=== PATIENT | male | born 1940 | race Caucasian/White ===

== ENCOUNTER 2017-06-22 23:55 | Inpatient (IN) ==
[2017-06-23] MEDS ORDERED: 0.9 % Sodium Chloride 1,000 ML IVC ONE (00:02)
[2017-06-23] MEDS ORDERED: Ipratropium/Albuterol Neb 3 ML IH ONE ×2 (00:03→05:40)
--- NOTE | 2017-06-23 00:13 | Emergency Department Note ---
Disposition Clinical Impression: Hypoxia Altered mental status Qualifiers: Altered mental status type: unspecified Qualified Code(s): R41.82 - Altered mental status, unspecified Cellulitis Qualifiers: Site of cellulitis: unspecified site Qualified Code(s): L03.90 - Cellulitis, unspecified Disposition: Admitted As Inpatient Condition: Fair Referrals: NONE,PCP [Primary Care Provider] - Forms: ED Satisfaction Letter Time of Disposition: 02:05 Altered Mental Status HPI - General Chief Complaint: ED Altered Mental Status Stated Complaint: AMS Time Seen by Provider: 06/23/17 00:01 Source: patient, EMS Mode of arrival: ambulatory Limitations: no limitations Nursing Notes Reviewed: Yes Vital Signs Reviewed: Yes - History of Present Illness HPI Narrative: 77-year-old male patient is for evaluation of altered mental status. History provided via EMS. EMS states that the patient's neighbor notices been increasing altered over the past 2-3 days. Patient was found to be hypoxic on room air saturation of 85%. Patient was given 4 mg of Narcan with some notable response. EMS noted the patient did have benzos at home. Patient is a known smoker. The patient is alert with a GCS of 14 and appears to be confused. Not cooperative initially on exam controlling his airway. Limitations: ROS unobtainable due to patients medical condition Past Medical History - Past Medical History Source: patient, other Medical history: Reports: non-contributory Psychiatric history: Reports: no psych history - Social History Smoking Status: Current every day smoker Smokeless Tobacco Status: No Alcohol use: Reports: none Drug use: Reports: none Physical Exam - General Limitations: no limitations General appearance: lethargic - Head Head exam: atraumatic, normocephalic, normal inspection - Eye Eye exam: Present: normal appearance, PERRL, EOMI - ENT ENT exam: normal exam, normal oropharynx, mucous membranes moist - Neck Neck exam: Present: normal inspection, full ROM, trachea midline - Chest Chest inspection: Present: normal inspection, symmetric chest wall rise - Respiratory Respiratory exam: Present: wheezes (Diffuse expiratory wheeze), accessory muscle use, prolonged expiratory phase. Absent: respiratory distress - Cardiovascular Cardiovascular exam: Present: tachycardia. Absent: systolic murmur - Abdominal Exam Abdominal exam: Present: soft, Non-Tender - Extremities Exam Extremities exam: Present: normal inspection, pedal edema (Trace bilateral) - Expanded Lower Extremity Exam Neurovascular/Tendon exam: Present: normal capillary refill - Neurological Exam Neurological exam: Present: alert, CN II-XII intact - Skin Skin exam: Present: warm, dry, intact, normal color Course Course Narrative: Patient is not a stroke alert given no clear time of onset. Patient does appear to be acutely altered. [place] etiologies includes hypoxia from likely COPD lung disease. Patient will get basic labs, chest x-ray as well as CT of the head and chest. Patient also get urinalysis. Patient does not require airway intervention this time. Disposition likely admission. Vital Signs Temperature 98.2 F 06/22/17 23:58 Pulse Rate 119 06/22/17 23:58 Respiratory Rate 24 06/22/17 23:58 Blood Pressure 106/70 06/22/17 23:58 O2 Sat by Pulse Oximetry 97 06/22/17 23:58 Temperature 98.2 F 06/22/17 23:58 Pulse Rate 87 06/23/17 02:43 Respiratory Rate 16 06/23/17 02:43 Blood Pressure 114/61 06/23/17 02:43 O2 Sat by Pulse Oximetry 94 06/23/17 02:43 Oxygen Delivery Oxygen Delivery Simple Mask Altered Mental Status - MDM Narrative Medical decision making narrative: Patient presents for acute altered mental status. EMS report the patient was recently diagnosed with sinusitis. Patient had several medications nearby upon arrival. One was Augmentin and prednisone. Patient also had benzoate. Patient was found to be hypoxic of 85%. Patient does appear to be controlling his airway. Patient does have evidence of cellulitis of lower extremity. Does have a white count possibly combination related to prednisone as well as recent infection. Patient was started on Rocephin in the ER. Patient CT of the head and chest shows no acute abnormalities. Patient will be admitted to hospital service for further evaluation and monitoring. Patient's mental status possibly related to hypoxemic episode earlier today versus polysubstance. Patient ABG did show hypoxemia patients prior coccygeal or titrated to pulse ox. - Lab Data Lab results reviewed: Yes I reviewed the patient's lab results. Result diagrams: 06/23/17 00:27 06/23/17 00:27 Lab Results 06/23/17 06/23/17 06/23/17 Range/Units 00:07 00:07 00:27 WBC 16.2 H (4.3-11.1) K/mcL RBC 4.04 L (4.19-5.50) M/mcL Hgb 11.8 L (12.9-16.9) g/dL Hct 37.0 L (37.5-50.1) % MCV 91.6 (83.0-100.0) fL MCH 29.2 (28.0-33.3) pg MCHC 31.9 (31.6-35.5) g/dL RDW 15.3 H (11.5-14.5) % Plt Count 189 (140-400) K/mcL MPV 9.5 (9.4-12.4) fL Immature Gran % 0.6 (0-4) % Seg Neutrophils % 88.5 % Lymphocytes % 4.3 % Monocytes % 5.9 % Eosinophils % 0.6 % Basophils % 0.1 % Neutrophils # 14.3 H (1.6-8.9) K/mcL Lymphocytes # 0.7 (0.6-4.6) K/mcL Monocytes # 1.0 (0.0-1.3) K/mcL Eosinophils # 0.1 (0.0-0.6) K/mcL Basophils # 0.0 (0.0-0.2) K/mcL PT (9.4-12.1) Seconds INR Sample Site ABG pH (7.32-7.45) pH Units ABG pCO2 (35-45) mmHg ABG pO2 (85-104) mmHg ABG HCO3 (21-27) mEq/L ABG Total CO2 (20-26) mEq/L ABG O2 Saturation (95-98) % ABG Base Excess (-2 to 3) mEq/L Bayron Test O2 Delivery Device Inspired O2 (1-15=lpm yb11-465=%) Sodium (136-145) mEq/L Potassium (3.5-5.1) mEq/L Chloride (98-107) mEq/L Carbon Dioxide (23-29) mEq/L BUN (8-23) mg/dL Creatinine (0.70-1.30) mg/dL Est GFR ( Amer) (> 60) Est GFR (Non-Af Amer) (> 60) BUN/Creatinine Ratio (6-26) Glucose (70-105) mg/dL Calculated Osmolality (280-300) Calcium (8.6-10.3) mg/dL Magnesium (1.6-2.6) mg/dL Total Bilirubin (0.3-1.0) mg/dL Direct Bilirubin (0.0-0.2) mg/dL Indirect Bilirubin (0.0-1.2) mg/dL AST (13-39) Units/L ALT (7-52) Units/L Alkaline Phosphatase (34-104) Units/L Creatine Kinase (30-223) Units/L Troponin I (< 0.04) ng/mL Serum Total Protein (6.4-8.9) g/dL Albumin (3.5-5.7) g/dL Globulin (2.4-3.5) g/dL Albumin/Globulin Ratio (1.1-2.2) Urine Color Yellow (Yellow) Urine Clarity Clear (Clear) Urine pH 6.0 (5.0-8.0) pH Units Ur Specific [place] 1.025 (1.010-1.025) Urine Protein 30 H (Neg-Trace) mg/dL Urine Glucose (UA) Normal (Normal) mg/dL Urine Ketones Negative (Negative) mg/dL Urine Blood Negative (Negative) Urine Nitrite Negative (Negative) Urine Bilirubin Negative (Negative) Urine Urobilinogen Normal (Normal) mg/dL Ur Leukocyte Esterase Negative (Negative) Urine Microscopic RBC 0-3 (0-3) per hpf Urine Microscopic WBC 0-3 (0-3) per hpf Ur Squamous Epith Cells Many H (None-Few) per lpf Urine Bacteria None Seen (None-Few) per hpf Hyaline Casts None Seen (None-Few) per lpf Ur Culture Indicated? NO (NO) Urine Opiates Screen Negative (Ixwtiu=439) ng/mL Ur Barbiturates Screen Negative (Anerqm=414) ng/mL Ur Phencyclidine Scrn Negative (Cutoff=25) ng/mL Ur Amphetamines Screen Negative (Htnojw=7496) ng/mL U Benzodiazepines Scrn Negative (Dypnkm=804) ng/mL Urine Cocaine Screen Negative (Cutoff= 300) ng/mL U Marijuana (THC) Screen Negative (Cutoff = 50) ng/mL Ethyl Alcohol (0-10) mg/dL 06/23/17 06/23/17 06/23/17 Range/Units 00:27 00:27 00:27 WBC (4.3-11.1) K/mcL RBC (4.19-5.50) M/mcL Hgb (12.9-16.9) g/dL Hct (37.5-50.1) % MCV (83.0-100.0) fL MCH (28.0-33.3) pg MCHC (31.6-35.5) g/dL RDW (11.5-14.5) % Plt Count (140-400) K/mcL MPV (9.4-12.4) fL Immature Gran % (0-4) % Seg Neutrophils % % Lymphocytes % % Monocytes % % Eosinophils % % Basophils % % Neutrophils # (1.6-8.9) K/mcL Lymphocytes # (0.6-4.6) K/mcL Monocytes # (0.0-1.3) K/mcL Eosinophils # (0.0-0.6) K/mcL Basophils # (0.0-0.2) K/mcL PT 12.4 H (9.4-12.1) Seconds INR 1.1 Sample Site ABG pH (7.32-7.45) pH Units ABG pCO2 (35-45) mmHg ABG pO2 (85-104) mmHg ABG HCO3 (21-27) mEq/L ABG Total CO2 (20-26) mEq/L ABG O2 Saturation (95-98) % ABG Base Excess (-2 to 3) mEq/L Bayron Test O2 Delivery Device Inspired O2 (1-15=lpm ld05-024=%) Sodium 133 L (136-145) mEq/L Potassium 4.1 (3.5-5.1) mEq/L Chloride 99 (98-107) mEq/L Carbon Dioxide 31 H (23-29) mEq/L BUN 16 (8-23) mg/dL Creatinine 0.84 (0.70-1.30) mg/dL Est GFR ( Amer) > 60 (> 60) Est GFR (Non-Af Amer) > 60 (> 60) BUN/Creatinine Ratio 19 (6-26) Glucose 229 H (70-105) mg/dL Calculated Osmolality 284 (280-300) Calcium 8.8 (8.6-10.3) mg/dL Magnesium (1.6-2.6) mg/dL Total Bilirubin 0.5 (0.3-1.0) mg/dL Direct Bilirubin 0.1 (0.0-0.2) mg/dL Indirect Bilirubin 0.4 (0.0-1.2) mg/dL AST 10 L (13-39) Units/L ALT 15 (7-52) Units/L Alkaline Phosphatase 63 (34-104) Units/L Creatine Kinase (30-223) Units/L Troponin I < 0.03 (< 0.04) ng/mL Serum Total Protein 5.5 L (6.4-8.9) g/dL Albumin 3.1 L (3.5-5.7) g/dL Globulin 2.4 (2.4-3.5) g/dL Albumin/Globulin Ratio 1.3 (1.1-2.2) Urine Color (Yellow) Urine Clarity (Clear) Urine pH (5.0-8.0) pH Units Ur Specific [place] (1.010-1.025) Urine Protein (Neg-Trace) mg/dL Urine Glucose (UA) (Normal) mg/dL Urine Ketones (Negative) mg/dL Urine Blood (Negative) Urine Nitrite (Negative) Urine Bilirubin (Negative) Urine Urobilinogen (Normal) mg/dL Ur Leukocyte Esterase (Negative) Urine Microscopic RBC (0-3) per hpf Urine Microscopic WBC (0-3) per hpf Ur Squamous Epith Cells (None-Few) per lpf Urine Bacteria (None-Few) per hpf Hyaline Casts (None-Few) per lpf Ur Culture Indicated? (NO) Urine Opiates Screen (Kudehy=841) ng/mL Ur Barbiturates Screen (Kxogxk=618) ng/mL Ur Phencyclidine Scrn (Cutoff=25) ng/mL Ur Amphetamines Screen ([place]=7515) ng/mL U Benzodiazepines Scrn (Bccovi=476) ng/mL Urine Cocaine Screen (Cutoff= 300) ng/mL U Marijuana (THC) Screen (Cutoff = 50) ng/mL Ethyl Alcohol < 10 (0-10) mg/dL 06/23/17 06/23/17 06/23/17 Range/Units 00:27 00:27 00:49 WBC (4.3-11.1) K/mcL RBC (4.19-5.50) M/mcL Hgb (12.9-16.9) g/dL Hct (37.5-50.1) % MCV (83.0-100.0) fL MCH (28.0-33.3) pg MCHC (31.6-35.5) g/dL RDW (11.5-14.5) % Plt Count (140-400) K/mcL MPV (9.4-12.4) fL Immature Gran % (0-4) % Seg Neutrophils % % Lymphocytes % % Monocytes % % Eosinophils % % Basophils % % Neutrophils # (1.6-8.9) K/mcL Lymphocytes # (0.6-4.6) K/mcL Monocytes # (0.0-1.3) K/mcL Eosinophils # (0.0-0.6) K/mcL Basophils # (0.0-0.2) K/mcL PT (9.4-12.1) Seconds INR Sample Site L Radial ABG pH 7.38 (7.32-7.45) pH Units ABG pCO2 56 H (35-45) mmHg ABG pO2 331 H (85-104) mmHg ABG HCO3 33 H (21-27) mEq/L ABG Total CO2 35 H (20-26) mEq/L ABG O2 Saturation 100 H (95-98) % ABG Base Excess 7 H (-2 to 3) mEq/L Bayron Test N/A O2 Delivery Device NRB Inspired O2 100.0 (1-15=lpm dq53-197=%) Sodium (136-145) mEq/L Potassium (3.5-5.1) mEq/L Chloride (98-107) mEq/L Carbon Dioxide (23-29) mEq/L BUN (8-23) mg/dL Creatinine (0.70-1.30) mg/dL Est GFR ( Amer) (> 60) Est GFR (Non-Af Amer) (> 60) BUN/Creatinine Ratio (6-26) Glucose (70-105) mg/dL Calculated Osmolality (280-300) Calcium (8.6-10.3) mg/dL Magnesium 2.1 (1.6-2.6) mg/dL Total Bilirubin (0.3-1.0) mg/dL Direct Bilirubin (0.0-0.2) mg/dL Indirect Bilirubin (0.0-1.2) mg/dL AST (13-39) Units/L ALT (7-52) Units/L Alkaline Phosphatase (34-104) Units/L Creatine Kinase 55 (30-223) Units/L Troponin I (< 0.04) ng/mL Serum Total Protein (6.4-8.9) g/dL Albumin (3.5-5.7) g/dL Globulin (2.4-3.5) g/dL Albumin/Globulin Ratio (1.1-2.2) Urine Color (Yellow) Urine Clarity (Clear) Urine pH (5.0-8.0) pH Units Ur Specific [place] (1.010-1.025) Urine Protein (Neg-Trace) mg/dL Urine Glucose (UA) (Normal) mg/dL Urine Ketones (Negative) mg/dL Urine Blood (Negative) Urine Nitrite (Negative) Urine Bilirubin (Negative) Urine Urobilinogen (Normal) mg/dL Ur Leukocyte Esterase (Negative) Urine Microscopic RBC (0-3) per hpf Urine Microscopic WBC (0-3) per hpf Ur Squamous Epith Cells (None-Few) per lpf Urine Bacteria (None-Few) per hpf Hyaline Casts (None-Few) per lpf Ur Culture Indicated? (NO) Urine Opiates Screen (Srwnrn=034) ng/mL Ur Barbiturates Screen (Tetqwg=981) ng/mL Ur Phencyclidine Scrn (Cutoff=25) ng/mL Ur Amphetamines Screen (Tmhvco=1375) ng/mL U Benzodiazepines Scrn (Cchpqa=115) ng/mL Urine Cocaine Screen (Cutoff= 300) ng/mL U Marijuana (THC) Screen (Cutoff = 50) ng/mL Ethyl Alcohol (0-10) mg/dL - Radiology Data Radiology results reviewed: Yes I reviewed the patient's radiology results. Chest X-Ray 06/23/17 00:02 IMPRESSION: Bibasilar atelectasis and/or pneumonia. D/ / Maximino Freeman MD / Maximino Freeman MD Interpreting Provider: Maximino Freeman MD Head CT 06/23/17 00:02 IMPRESSION: No acute intracranial abnormality. Bilateral acute sphenoid sinusitis. D/ / Maximino Freeman MD / Maximino Freeman MD Interpreting Provider: Maximino Freeman MD Chest CTA 06/23/17 00:04 IMPRESSION: 1. Limited study with no definite scan evidence for pulmonary embolus. 2. Emphysema. 3. Coronary artery disease. 4. Bilateral hydronephrosis versus renal sinus cysts. If CT scan is performed to evaluate this finding delayed imaging will be necessary. D/ / Maximino Freeman MD / Maximino Freeman MD Interpreting Provider: Maximino Freeman MD - EKG Data EKG attestation: Yes I reviewed and interpreted this EKG. EKG results narrative: Multifocal atrial tachycardia Rate: tachycardia Rhythm: MAT [place]/QRS: normal Interpretation: nonspecific ST-T wave changes TPA Checklist - LKW: 3-4.5 hrs Add. Warnings/Precautions Patient/family understanding: The patient/family members have been counseled and understood the risk, benefit , and alternatives of treatment. S.B.AEl - S.[email or web address].Le Situation: Demographics Background: Presenting Complaint Assessment: Vital Signs, Course and respsone to treatment, Patient/Family Expectation Recommendation: Barrier(s) to disposition, Recommendation based on pending studies, treatments, or consults S.B.Le Report Given to: Dr. Lonnie Vallejo Repor Time: 03:42
[2017-06-23] MEDS ORDERED: methylPREDNISolone 125 MG/2 ML VIAL IVP ONE (00:16)
--- NOTE | 2017-06-23 00:27 | Emergency Department Note ---
START Narrative - START START: I examined this patient and my medical decision-making was reviewed with the Resident Physician. I agree with the documented findings, disposition and treatment plan as described except to the extent set forth below. 77 year old male presnts to the ED via EMS with hypoxia and respiratory distress. EMS staets that he is altered and ahs a history of COPD And upon arrival was 85%. PAtient has been placed on Bipap. Dmitri is currently is tachycardiac and like has multifocal atrial tachycardia and not afib RVR. We will do AMS workup and Admit to medicine after stabilization
[2017-06-23 00:35] LABS: Basophils % 0.1 %; Eosinophils # 0.1 K/mcL (0.0-0.6); Eosinophils % 0.6 %; Hemoglobin 11.8 g/dL (12.9-16.9); Immature Granulocytes % 0.6 % (0-4); Lymphocytes # 0.7 K/mcL (0.6-4.6); Lymphocytes % 4.3 %; Mean Corpuscular HGB Conc 31.9 g/dL (31.6-35.5); Mean Corpuscular Hemoglobin 29.2 pg (28.0-33.3); Mean Corpuscular Volume 91.6 fL (83.0-100.0); Mean Platelet Volume 9.5 fL (9.4-12.4); Monocytes % 5.9 %; Neutrophils # 14.3 K/mcL (1.6-8.9); Platelet Count 189 K/mcL (140-400); Red Blood Count 4.04 M/mcL (4.19-5.50); Red Cell Distribution Width 15.3 % (11.5-14.5); Segmented Neutrophils % 88.5 %
[2017-06-23 00:41] LABS: INR 1.1; Prothrombin Time 12.4 Seconds (9.4-12.1)
[2017-06-23 00:52] LABS: ABG Base Excess 7 mEq/L (-2 to 3); ABG HCO3 33 mEq/L (21-27); ABG Oxygen Saturation 100 % (95-98); ABG PCO2 56 mmHg (35-45); ABG PH 7.38 pH Units (7.32-7.45); ABG PO2 331 mmHg (85-104); ABG TCO2 35 mEq/L (20-26)
[2017-06-23 00:55] LABS: Amphetamine Screen,Urine Negative ng/mL (Cutoff=1000); Barbiturate Screen,Urine Negative ng/mL (Cutoff=200); Benzodiazepines Screen,Urine Negative ng/mL (Cutoff=200); Cannabinoid Screen,Urine Negative ng/mL (Cutoff = 50); Cocaine Screen,Urine Negative ng/mL (Cutoff= 300); Opiate Screen,Urine Negative ng/mL (Cutoff=300); Phencyclidine Screen,Urine Negative ng/mL (Cutoff=25)
[2017-06-23 00:56] LABS: Ethanol < 10 mg/dL (0-10)
[2017-06-23 00:58] LABS: Bilirubin,Urine Negative (Negative); Blood,Urine Negative (Negative); Clarity,Urine Clear (Clear); Color,Urine Yellow (Yellow); Glucose,Urine (UA) Normal (Normal); Ketones,Urine Negative (Negative); Leukocyte Esterase,Urine Negative (Negative); Nitrite,Urine Negative (Negative); Protein,Urine 30 mg/dL (Neg-Trace); Specific Gravity,Urine 1.025 (1.010-1.025); Urobilinogen,Urine Normal (Normal)
[2017-06-23 01:00] LABS: Bacteria,Urine None Seen per hpf (None-Few); Hyaline Casts,Urine None Seen per lpf (None-Few); RBC,Urine 0-3 per hpf (0-3); Squamous Epithelial Cell,Urine Many per lpf (None-Few); WBC,Urine 0-3 per hpf (0-3)
[2017-06-23 01:02] LABS: Alanine Aminotransferase 15 Units/L (7-52); Albumin 3.1 g/dL (3.5-5.7); Albumin/Globulin Ratio 1.3 (1.1-2.2); Alkaline Phosphatase 63 Units/L (34-104); Aspartate Amino Transferase 10 Units/L (13-39); BUN/Creatinine Ratio 19 (6-26); Bilirubin,Direct 0.1 mg/dL (0.0-0.2); Bilirubin,Indirect 0.4 mg/dL (0.0-1.2); Bilirubin,Total 0.5 mg/dL (0.3-1.0); Blood Urea Nitrogen 16 mg/dL (8-23); Calcium 8.8 mg/dL (8.6-10.3); Carbon Dioxide 31 mEq/L (23-29); Chloride 99 mEq/L (98-107); Globulin 2.4 g/dL (2.4-3.5); Glucose 229 mg/dL (70-105); Osmolality,Calculated 284 (280-300); Potassium 4.1 mEq/L (3.5-5.1); Sodium 133 mEq/L (136-145); Total Protein 5.5 g/dL (6.4-8.9); eGFR For African Americans > 60 (> 60); eGFR For Non-African Americans > 60 (> 60)
[2017-06-23] MEDS ORDERED: cefTRIAXone 1,000 MG in Water for inj. (sterile) 20 ML 10 ML IVP ONE (02:04)
[2017-06-23] MEDS ORDERED: Azithromycin 500 MG in D5% in Water 250 ML IVPB ONE (03:38)
[2017-06-23] MEDS ORDERED: Naloxone 0.4 MG/ML INJ IVP PRN (07:54)
[2017-06-23] MEDS ORDERED: Ondansetron 4 MG/2 ML VIAL IVP PRN (07:54)
[2017-06-23] MEDS ORDERED: *HR* Promethazine 25 MG/ML VIAL IVP PRN (07:54)
[2017-06-23] MEDS ORDERED: Acetaminophen 325 MG TABLET PO PRN (07:54)
[2017-06-23] MEDS ORDERED: *HR* HYDROcodone/Acet 5/325 mg TABLET PO PRN (07:54)
[2017-06-23] MEDS ORDERED: 0.9 % Sodium Chloride 1,000 ML IVC SCH (08:00)
[2017-06-23] MEDS ORDERED: Cefepime HCl 1,000 MG in D5% in Water (Mini-Bag+) 100 ML IVPB SCH (08:00)
[2017-06-23] MEDS ORDERED: Cefepime HCl 1,000 MG in Water for inj. (sterile) 10 ML IVP SCH (09:00)
[2017-06-23] MEDS: Levofloxacin 750 MG/150 ML 750 MG/150 ML BAG IVPB SCH (09:06)
[2017-06-23] MEDS: MethylPREDNISolone 40 MG/ML VIAL IVP SCH ×3 (09:07→17:04)
--- NOTE | 2017-06-23 09:09 | Internal Med History&Physical ---
Date of Encounter: 06/23/17 Time of Encounter: 08:00 Assessment and Plan (1) Acute respiratory failure with hypoxia and hypercapnia Current visit: Yes Status: Acute Admit the patient into telemetry reviewed his blood gas showed respiratory acidosis with PH 7.38 Pco2 56 no previous blood gases to compare I will put him on BiPAP continuously for now recheck blood gases later today reviewed his chest x-ray by myself which showed bilateral lower lobe infiltrates start him on empirical antibiotic Zosyn and Levaquin I will check sputum culture, respiratory viral panel, step pneumonia, Legionella reviewed CTA of the chest ruled out PE (2) Pneumonia Current visit: Yes Status: Acute Most likely bacterial pneumonia however more concerned about aspiration pneumonia too since patient was confused and altered mental status for couple of days so I would continue broad spectrum antibiotic Zosyn and Levaquin Qualifiers: Laterality: bilateral Lung location: lower lobe of lung Qualified Code(s) : J18.9 - Pneumonia, unspecified organism (3) Acute delirium Current visit: Yes Status: Acute Due to hypercapnia respiratory failure (4) COPD exacerbation Current visit: Yes Status: Acute Continue him on BiPAP started him on high-dose IV steroids (5) Bilateral lower extremity edema Current visit: Yes Status: Acute Noticed a significant bilateral lower extremity edema most likely venous stasis related I will check 2-D echo to rule out any heart failure gentle hydration only holding on Lasix for now since patient is high risk to develop hypotension (6) Tobacco dependence Current visit: Yes Status: Acute (7) Cellulitis Current visit: Yes Status: Acute due to venous stasis continue empirical antibiotic Qualifiers: Site of cellulitis: extremity Site of cellulitis of extremity: lower extremity Laterality: unspecified laterality Qualified Code(s): L03.119 - Cellulitis of unspecified part of limb Internal Medicine - H&P: HPI Chief complaint: AMS Admitted From: Emergency Dept Plans for Post Hospital Care: Home History of present illness: Mr. Og is a 77 year old male with known PMH of COPD, chronic tobacco dependence pt was brought into ER by EMS after pt's neighbor notices been increasing altered over the past 2-3 days. Patient was found to be hypoxic on room air saturation of 85%. Patient was given 4 mg of Narcan with some notable response. EMS noted the patient did have benzos at home. Pt is currently on the floor, on Oxy mask at 5 lit Spo2 95 %. Pt is still sleepy and sedative, maintaining airway well, responding to verbal stimuli and answered few questions , as well as following few commands. however he is falling back asleep right away. Unable to get a thorugh history from pt. All the information I have it here is from ER staff notes and ED attending documentation. Pt denied any CP. He did c/o Cough with no expectoration. Denied any dysuria. able to move all his extremities ok, no neuro focal deficit noticed. Past Med Surg Social Fam HX - Past Medical History Medical history: COPD Psychiatric history: no psych history - Social History Smoking Status: Current every day smoker Packs per day: 1 Smokeless Tobacco Status: No Alcohol use: none Drug use: none - Additional Family History Additional family history: Unable to perform thorough family history since patient is confused and sleepy Internal Medicine - H&P: Meds 3 Allergy/AdvReac Type Severity Reaction Status Date / Time No Known Allergies Allergy Verified 06/23/17 07:00 All Systems PM: A 10-system review of systems was performed and is negative for pertinent findings except as documented above in the HPI. Review of systems: All the systems are reviewed everything is benign except the systems and symptoms I mentioned in the history of present illness - Constitutional Vitals: Temp Pulse Resp BP Pulse Ox 97.6 F 87 16 126/75 92 06/23/17 07:14 06/23/17 07:14 06/23/17 07:14 06/23/17 07:14 06/23/17 07:14 General appearance: Present: A&O X 1, mild distress. Absent: answers questions appropriately Exam: Patient is sleepy and semi-arousable - Neck Neck exam general surgery: Present: supple - Respiratory Respiratory exam: Present: decreased breath sounds, respiratory distress, wheezes (moderate to severe wheezing). Absent: rales, rhonchi - Cardiovascular Cardiovascular exam: Present: RRR, +S1, +S2. Absent: tachycardia - GI/Abdominal GI/Abdominal exam: Present: normal bowel sounds, soft. Absent: rebound, rigid, tenderness - Extremities Exam Extremities exam: Present: pedal edema (2+). Absent: calf tenderness, tenderness Additional comments: mild erythema in both legs noticed.. no ulcers noticed.. chronic venous stasis changes noticed - Back Exam Back exam: Absent: CVA tenderness (L), CVA tenderness (R) - Neurological Exam Neurological exam: Present: altered Additional comments: Unable to perform a thorough neuromuscular examination since patient is confused and sleepy - Psychiatric Psychiatric exam: Present: depressed (Sleepy) - Skin Skin exam: Absent: rash Internal Med - H&P Results - Labs CBC & Chem 7: 06/23/17 00:27 06/23/17 00:27
[2017-06-23] MEDS: Nicotine 21 MG PATCH.TD24 TD SCH (10:14)
[2017-06-23] MEDS: Ipratropium/Albuterol Neb 3 ML IH SCH ×5 (10:33→23:56)
[2017-06-23 15:01] LABS: Adenovirus Not Detected (Not Detect); Bordetella Pertussis Not Detected (Not Detect); Chlamydophila pneumoniae Not Detected (Not Detect); Coronavirus 229E Not Detected (Not Detect); Coronavirus HKU1 Not Detected (Not Detect); Coronavirus NL63 Not Detected (Not Detect); Coronavirus OC43 Not Detected (Not Detect); Human Metapneumovirus Not Detected (Not Detect); Human Rhinovirus/Enterovirus Not Detected (Not Detect); Influenza A Subtype 2009 H1 Not Detected (Not Detect); Influenza A Untypeable Not Detected (Not Detect); Influenza B Not Detected (Not Detect); Mycoplasma pneumoniae Not Detected (Not Detect); Parainfluenza Virus 1 Not Detected (Not Detect); Parainfluenza Virus 2 Not Detected (Not Detect); Parainfluenza Virus 3 Not Detected (Not Detect); Parainfluenza Virus 4 Not Detected (Not Detect); Respiratory Syncytial Virus Not Detected (Not Detect)
[2017-06-24] MEDS: MethylPREDNISolone 40 MG/ML VIAL IVP SCH ×2 (02:24→04:26)
[2017-06-24] MEDS: Ipratropium/Albuterol Neb 3 ML IH SCH ×6 (03:34→22:51)
[2017-06-24] MEDS: *HR* Enoxaparin 40 MG/0.4 ML SYRINGE SQ SCH (04:26)
[2017-06-24 04:37] LABS: Basophils % 0.1 %; Hematocrit 39.3 % (37.5-50.1); Hemoglobin 12.3 g/dL (12.9-16.9); Immature Granulocytes % 0.7 % (0-4); Lymphocytes # 0.7 K/mcL (0.6-4.6); Lymphocytes % 3.4 %; Mean Corpuscular HGB Conc 31.3 g/dL (31.6-35.5); Mean Corpuscular Hemoglobin 29.1 pg (28.0-33.3); Mean Corpuscular Volume 92.9 fL (83.0-100.0); Monocytes # 0.9 K/mcL (0.0-1.3); Monocytes % 4.5 %; Neutrophils # 18.9 K/mcL (1.6-8.9); Platelet Count 208 K/mcL (140-400); Red Blood Count 4.23 M/mcL (4.19-5.50); Red Cell Distribution Width 15.9 % (11.5-14.5); Segmented Neutrophils % 91.3 %
[2017-06-24 04:43] LABS: BUN/Creatinine Ratio 20 (6-26); Blood Urea Nitrogen 17 mg/dL (8-23); Calcium 9.4 mg/dL (8.6-10.3); Carbon Dioxide 30 mEq/L (23-29); Chloride 102 mEq/L (98-107); Glucose 187 mg/dL (70-105); Osmolality,Calculated 292 (280-300); Potassium 4.3 mEq/L (3.5-5.1); Sodium 138 mEq/L (136-145); eGFR For African Americans > 60 (> 60); eGFR For Non-African Americans > 60 (> 60)
--- NOTE | 2017-06-24 07:59 | Internal Med Progress Note ---
Date of Encounter: 06/24/17 Time of Encounter: 09:45 - Assessment and plan (1) Acute respiratory failure with hypoxia and hypercapnia Current Visit: Yes Status: Acute Assessment and plan: Improving. Due to underlying pneumonia and COPD. Continue bronchodilators. Wean FiO2 as tolerated. (2) Acute delirium Current Visit: Yes Status: Resolved Assessment and plan: This has now resolved. Acute delirium due to hypoxia and pneumonia. (3) Bilateral lower extremity edema Current Visit: Yes Status: Acute Assessment and plan: Continues to have bilateral pedal edema. Will start patient on IV Lasix. His blood pressure is much better today. (4) Cellulitis Current Visit: Yes Status: Acute Assessment and plan: Bilateral lower extremity superficial cellulitis due to underlying venous stasis. Much improved today. Qualifiers: Site of cellulitis: extremity Site of cellulitis of extremity: lower extremity Laterality: unspecified laterality Qualified Code(s): L03.119 - Cellulitis of unspecified part of limb (5) COPD exacerbation Current Visit: Yes Status: Acute Assessment and plan: Symptoms are improving. Continue prednisone. Continue bronchodilators. Wean FiO2 as tolerated. (6) Pneumonia Current Visit: Yes Status: Suspected Assessment and plan: Continue current antibiotics. Cultures have been negative so far. Urine strep and Legionella antigens are negative. Qualifiers: Pneumonia type: due to Pneumococcus Laterality: bilateral Lung location: lower lobe of lung Qualified Code(s): J13 - Pneumonia due to Streptococcus pneumoniae (7) Tobacco dependence Current Visit: Yes Status: Acute Assessment and plan: Continue NicoDerm - Subjective Interval history: Patient is feeling better at this time. Shortness of breath is improving. No chest pain. Continues to have mild wheezing. Has been weaned down to 2 L O2 supplementation. - Constitutional Vitals: Temp Pulse Resp BP Pulse Ox 98.3 F 88 16 148/89 90 06/24/17 07:11 06/24/17 07:11 06/24/17 07:11 06/24/17 07:11 06/24/17 07:11 General appearance: Present: A&O X 1, mild distress. Absent: answers questions appropriately - Neck Neck exam general surgery: Present: supple, trachea midline. Absent: lymphadenopathy - Respiratory Respiratory exam: Present: prolonged expiratory phase, wheezes. Absent: accessory muscle use, rales, rhonchi - Cardiovascular Cardiovascular exam: Present: RRR, +S1, +S2. Absent: diastolic murmur, gallop, rubs, systolic murmur - GI/Abdominal GI/Abdominal exam: Present: normal bowel sounds, soft, no peritoneal signs. Absent: distended, tenderness - Extremities Exam Extremities exam: Present: pedal edema (Bilateral), warm, radial pulses palpable and symmetrical. Absent: calf tenderness, cyanotic - Neurological Exam Neurological exam: Present: CN II-XII intact, oriented X3, no focal deficits, strengths equal and symetr throughout. Absent: facial droop, speech deficit - Skin Skin exam: Present: dry, erythema (Improved in both lower extremities), intact Internal Medicine: Result - Labs CBC & Chem 7: 06/24/17 04:13 06/24/17 04:13 Labs: Short CBC 06/24/17 Range/Units 04:13 WBC 20.7 H (4.3-11.1) K/mcL Hgb 12.3 L (12.9-16.9) g/dL Hct 39.3 (37.5-50.1) % Plt Count 208 (140-400) K/mcL Neutrophils # 18.9 H (1.6-8.9) K/mcL BMP 06/24/17 04:13 Sodium 138 Potassium 4.3 Chloride 102 Carbon Dioxide 30 H BUN 17 Creatinine 0.84 Glucose 187 H Calcium 9.4 Cardiac Enzymes 06/23/17 06/23/17 Range/Units 09:26 14:58 Troponin I < 0.03 < 0.03 (< 0.04) ng/mL - ABG Interpretation ABG results: ABG ABG pH 7.38 pH Units (7.32-7.45) 06/23/17 00:49 ABG pCO2 56 mmHg (35-45) H 06/23/17 00:49 ABG pO2 331 mmHg (85-104) H 06/23/17 00:49 ABG O2 Saturation 100 % (95-98) H 06/23/17 00:49 PT/INR, D-dimer PT 12.4 Seconds (9.4-12.1) H 06/23/17 00:27 Consult Discharge Plan - Plan Referrals: NONE,PCP [Primary Care Provider] -
[2017-06-24] MEDS: Nicotine 21 MG PATCH.TD24 TD SCH (09:17)
[2017-06-24] MEDS: Levofloxacin 750 MG/150 ML 750 MG/150 ML BAG IVPB SCH (09:24)
[2017-06-24] MEDS: Furosemide 40 MG/4 ML VIAL IVP SCH (09:24)
[2017-06-24] MEDS: predniSONE 20 MG TABLET PO SCH (14:15)
--- NOTE | 2017-06-24 16:10 | Electrocardiograph Report ---
[address] [place], [place] [address] Test Date: 2017-06-23 Pat Name: Pee Og Department: 103 Room: 2A11 Gender: M Database Analyst: : 1940 Requested By: Michael Macias Order Number: [id number] Reading MD: Ilana Malik Measurements Intervals [place] Rate: 116 P: HI: 0 QRS: 78 QRSD: 83 T: 58 QT: 312 QTc: 381 Interpretive Statements NORMAL SINUS RHYTHM PAC'S Electronically Signed On 06-24-2017 16:08:50 EST by Ilana Malik
[2017-06-25 03:11] LABS: Basophils % 0.1 %; Hematocrit 39.9 % (37.5-50.1); Hemoglobin 12.7 g/dL (12.9-16.9); Immature Granulocytes % 0.8 % (0-4); Lymphocytes # 0.8 K/mcL (0.6-4.6); Lymphocytes % 4.5 %; Mean Corpuscular HGB Conc 31.8 g/dL (31.6-35.5); Mean Corpuscular Hemoglobin 29.1 pg (28.0-33.3); Mean Corpuscular Volume 91.3 fL (83.0-100.0); Mean Platelet Volume 9.8 fL (9.4-12.4); Monocytes % 5.6 %; Neutrophils # 16.5 K/mcL (1.6-8.9); Platelet Count 211 K/mcL (140-400); Red Blood Count 4.37 M/mcL (4.19-5.50); Red Cell Distribution Width 15.9 % (11.5-14.5)
[2017-06-25 03:23] LABS: BUN/Creatinine Ratio 24 (6-26); Blood Urea Nitrogen 22 mg/dL (8-23); Calcium 9.5 mg/dL (8.6-10.3); Carbon Dioxide 30 mEq/L (23-29); Chloride 99 mEq/L (98-107); Glucose 182 mg/dL (70-105); Osmolality,Calculated 294 (280-300); Potassium 4.4 mEq/L (3.5-5.1); Sodium 138 mEq/L (136-145); eGFR For African Americans > 60 (> 60); eGFR For Non-African Americans > 60 (> 60)
[2017-06-25] MEDS: Ipratropium/Albuterol Neb 3 ML IH SCH ×3 (03:25→11:45)
[2017-06-25] MEDS: *HR* Enoxaparin 40 MG/0.4 ML SYRINGE SQ SCH (05:18)
[2017-06-25] MEDS: Nicotine 21 MG PATCH.TD24 TD SCH (09:29)
[2017-06-25] MEDS: Levofloxacin 750 MG/150 ML 750 MG/150 ML BAG IVPB SCH (09:46)
[2017-06-25] MEDS: predniSONE 20 MG TABLET PO SCH (09:46)
[2017-06-25] MEDS: Furosemide 40 MG/4 ML VIAL IVP SCH (09:46)
--- NOTE | 2017-06-25 10:03 | Discharge Summary ---
Date of Encounter: 06/25/17 Time of Encounter: 09:15 - Discharge Diagnosis (1) Acute respiratory failure with hypoxia and hypercapnia Priority: Primary Status: Acute (2) Acute delirium Priority: Secondary Status: Resolved (3) Bilateral lower extremity edema Priority: Secondary Status: Acute (4) Cellulitis Priority: Secondary Status: Acute Qualifiers: Site of cellulitis: extremity Site of cellulitis of extremity: lower extremity Laterality: unspecified laterality Qualified Code(s): L03.119 - Cellulitis of unspecified part of limb (5) COPD exacerbation Priority: Secondary Status: Acute (6) Pneumonia Priority: Secondary Status: Acute Qualifiers: Pneumonia type: due to unspecified organism Laterality: bilateral Lung location: lower lobe of lung Qualified Code(s): J18.9 - Pneumonia, unspecified organism (7) Tobacco dependence Priority: Secondary Status: Chronic (8) Essential hypertension Priority: Secondary Status: Acute (9) Diabetes mellitus Priority: Secondary Status: Acute Qualifiers: Diabetes mellitus type: type 2 Diabetes mellitus complication status: without complication Diabetes mellitus mcc insulin use: without mcc use Qualified Code(s): E11.9 - Type 2 diabetes mellitus without complications Hospital course: Mr. Og is a 77 year old male patient with history of chronic tobacco abuse, COPD was hospitalized here with altered mental status initially due to hypoxia and pneumonia. Patient also apparently had some benzodiazepines at home. He also responded to Narcan in the ER. He was started on IV antibiotics and treatment for COPD exacerbation with steroids, BiPAP, bronchodilators. His symptoms improved soon after and by the next morning he was back to baseline. He was monitored for another day in the hospital while we elevated his blood cultures. They have been negative so far. He is now back to baseline and will be discharged home today on steroid taper and antibiotics to complete treatment course. He also has now been diagnosed with diabetes mellitus with an A1c level of 6.7%. He will be placed on metformin. He also has hypertension and has been placed on lisinopril for this. Patient did have bilateral pedal edema. 2-D echocardiogram showed normal ejection fraction and mild left ventricular diastolic dysfunction. He will be placed on Lasix to help with this symptom. He is advised to follow up with his primary care provider for further management of his chronic medical conditions. Discharge discussed with: patient, case management - Time Spent with Patient Total time spent providing and/or coordinating discharge services: Greater than 30 minutes (35 min) - Discharge Medications Prescriptions: Albuterol Sulfate [Albuterol Inhaler] 2 puff IH Q4HR PRN #1 hfa.aer.ad PRN Reason: Shortness Of Breath Budesonide/Formoterol 160/4.5 [Symbicort 160/4.5] 2 puff IH BIDR #1 hfa.aer.ad Furosemide [Lasix] 40 mg PO DAILY #30 tablet levoFLOXacin [Levaquin] 750 mg PO DAILY #7 tablet Lisinopril 2.5 mg PO DAILY #30 tablet metFORMIN [Glucophage] 500 mg PO BIDWM #60 tablet predniSONE [PredniSONE] 10 mg PO DAILY 8 Days tablet Home Medications: Albuterol Sulfate [Albuterol Inhaler] 2 puff IH Q4HR PRN #1 hfa.aer.ad 06/25/17 [Rx] Budesonide/Formoterol 160/4.5 [Symbicort 160/4.5] 2 puff IH BIDR #1 hfa.aer.ad 06/25/17 [Rx] Furosemide [Lasix] 40 mg PO DAILY #30 tablet 06/25/17 [Rx] Lisinopril 2.5 mg PO DAILY #30 tablet 06/25/17 [Rx] levoFLOXacin [Levaquin] 750 mg PO DAILY #7 tablet 06/25/17 [Rx] metFORMIN [Glucophage] 500 mg PO BIDWM #60 tablet 06/25/17 [Rx] predniSONE [PredniSONE] 10 mg PO DAILY 8 Days tablet 06/25/17 [Rx] Allergies/Adverse Reactions: 3 Allergy/AdvReac Type Severity Reaction Status Date / Time No Known Allergies Allergy Verified 06/23/17 07:00 Date of admission: 06/23/17 07:55 Primary care physician: PCP NONE Discharging clinician: Bhavani Currie Anticipated date of discharge: 06/25/17 - Constitutional Vitals: Temp Pulse Resp BP Pulse Ox 98.1 F 72 16 143/88 91 06/25/17 07:20 06/25/17 07:20 06/25/17 07:38 06/25/17 07:20 06/25/17 07:38 General appearance: Present: cooperative, A&O X 1, no acute distress, answers questions appropriately - Respiratory Respiratory exam: Present: prolonged expiratory phase, wheezes. Absent: accessory muscle use, rales, rhonchi - Cardiovascular Cardiovascular exam: Present: RRR, +S1, +S2. Absent: diastolic murmur, gallop, rubs, systolic murmur - GI/Abdominal GI/Abdominal exam: Present: normal bowel sounds, soft, no peritoneal signs. Absent: distended, tenderness - Extremities Exam Extremities exam: Present: warm, radial pulses palpable and symmetrical. Absent : calf tenderness, cyanotic, pedal edema - Neurological Exam Neurological exam: Present: CN II-XII intact, oriented X3, no focal deficits. Absent: facial droop, speech deficit - Patient Status Disposition: Home, Self-Care Condition: Good Functional capacity at discharge: independent ambulation Overall status at discharge: patient is progressing back to baseline - Discharge Instructions Instructions: Acute Respiratory Distress Syndrome (DC), Cellulitis (DC), Chronic Obstructive Pulmonary Disease (DC) Follow Up With: NONE,PCP [Primary Care Provider] - (Please call [phone] to set up a follow up appointment to be seen in 7-10 days. Thank you!) - Diet and Activity Activity: increase activity as tolerated Diet: diabetic diet, low fat, low cholesterol, low salt diet
[2017-06-25 10:57] LABS: Hemoglobin A1C 6.7 %
[2017-06-25 11:05] VITALS: BP 170/89
== END 2017-06-25 11:56 | disposition home or self-care (01) | DRG 189 ==
LOC: EDBD → 2ANU 23:55 → EMEROO 23:55 → 2ANU 06-23 06:41
PROVIDERS: ADMIT Internal Medicine; ATTEND Internal Medicine